=== PATIENT | male | born 1980 | race Caucasian/White ===

== ENCOUNTER 2023-12-08 20:51 | Inpatient (IN) | payer MEDICAID ==
[~2023-12-08] VITALS: Ht 170.2 cm; Wt 98.4 kg
[2023-12-08 21:17] LABS: BASOPHILS % 0.3 % (0.0-2.0); HEMATOCRIT. 44.8 % (42.0-52.0); HEMOGLOBIN. 15.1 g/dL (14.0-18.0); LYMPHOCYTES % 12.4 % (20.0-50.0); MEAN CORPUSCULAR HEMOGLOBIN 31.4 pg (28.0-32.0); MEAN CORPUSCULAR HGB CONC 33.8 g/dL (31.0-37.0); MEAN CORPUSCULAR VOLUME 93.1 fL (80.0-94.0); MEAN PLATELET VOLUME 8.8 fl (7.4-10.4); MONOCYTES % 7.5 % (2.0-8.0); NEUTROPHILS % 79.8 % (40.0-76.0); PLATELET 203 x1000/uL (130-400); RED BLOOD CELL COUNT 4.81 mill/uL (4.7-6.1); RED CELL DISTRIBUTION WIDTH 13.8 % (11.6-14.6); WHITE BLOOD COUNT 13.4 x1000/uL (4.5-11.0)
[2023-12-08] MEDS: ONDANSETRON HCL 4MG/2ML INJ IV STA (21:17)
[2023-12-08] MEDS: SODIUM CHLORIDE 0.9% 1000ML BAG (SEPSIS BOLUS) IV ONE (21:19)
[2023-12-08] MEDS: PIPERACILLIN/TAZO 3.375G/50ML 50 ML IV ONE (21:19)
[2023-12-08 21:26] LABS: CHLORIDE 97 mEq/L (98-107); POTASSIUM 3.5 mEq/L (3.5-5.1); SODIUM 138 mEq/L (136-145)
[2023-12-08 21:27] LABS: CARBON DIOXIDE 33 mEq/L (21-32); PROTHROMBIN TIME 11.4 sec (9.6-11.0)
[2023-12-08 21:27] LABS: BG BASE EXCESS 9.1 mmol/L (-2.0-3.0); BG CARBOXYHEMOGLOBIN 1.4 % (0.5-1.5); BG DEOXYHEMOGLOBIN 7.6 % (0.0-5.0); BG HCO3 ACT 34.1 mmol/L (21.0-28.0); BG METHEMOGLOBIN 0.1 % (0.5-1.5); BG OXYGEN SATURATION 92.3 % (94.0-98.0); BG OXYHEMOGLOBIN 90.9 % (94.0-98.0); BG PH 7.478 (7.350-7.450); BG PO2 62.6 mmHg (83.0-108.0); BG SAMPLE SITE LEFT RADIAL; BG TOTAL HEMOGLOBIN 15.5 g/dL (13.5-17.5); BG VENT MODE ROOM AIR
[2023-12-08 21:28] LABS: CALCIUM 9.9 mg/dL (8.7-10.4)
[2023-12-08 21:32] LABS: GLUCOSE 230 mg/dL (70-105); UREA NITROGEN BLOOD 15 mg/dL (9-23)
[2023-12-08 21:33] LABS: TROPONIN I HIGH SENSITIVITY 14 ng/L (3.0-53)
[2023-12-08 21:34] LABS: ALANINE AMINOTRANSFERASE 15 IU/L (10-49); ALBUMIN 4.6 g/dL (3.2-4.8); ASPARTATE AMINOTRANSFERASE 14 IU/L (<34)
[2023-12-08 21:35] LABS: BETA HYDROXYBUTYRATE 1.5 mMol/L (0.0-0.3); BILIRUBIN TOTAL 0.8 mg/dL (0.1-1.0); PROTEIN TOTAL 7.8 g/dL (6.0-8.3)
[2023-12-08] MEDS: VANCOMYCIN 1G PREMIX 200 ML IV ONE (22:08)
[2023-12-08 23:48] LABS: CLARITY URINE CLEAR (CLEAR); COLOR URINE YELLOW (YELLOW); GLUCOSE URINE 2+ (NEGATIVE); KETONES URINE 2+ (NEGATIVE); LEUKOCYTE ESTERASE URINE NEGATIVE (NEGATIVE); NITRITE URINE NEGATIVE (NEGATIVE); OCCULT BLOOD URINE NEGATIVE (NEGATIVE); PROTEIN URINE 3+ (NEGATIVE); SPECIFIC GRAVITY URINE 1.022 (1.005-1.030)
[2023-12-09 02:02] LABS: RBC URINE 0-2 /hpf (0-2); WBC URINE 0-2 /hpf (0-2)
[2023-12-09 02:03] LABS: BACTERIA URINE NONE SEEN; SQUAMOUS EPITHELIAL CELL URINE NONE SEEN /lpf (RARE/1+)
[2023-12-09] MEDS ORDERED: GUAIFENESIN 200MG/10ML SUGAR FREE UDC PO PRN (02:30)
[2023-12-09] MEDS ORDERED: DEXTROSE 50% WATER 50ML SYRINGE IV PRN (02:30)
[2023-12-09] MEDS ORDERED: ACETAMINOPHEN 325MG TABLET PO PRN ×2 (02:30)
[2023-12-09] MEDS ORDERED: DOCUSATE SODIUM 100MG CAPSULE PO PRN (02:30)
[2023-12-09] MEDS ORDERED: MAGNESIUM/ALUMINUM HYDROXIDE/SIMETHICONE 30ML UDC PO PRN (02:30)
[2023-12-09] MEDS: HYDRALAZINE 20MG/ML VIAL IV PRN (02:59)
[2023-12-09] MEDS: PIPERACILLIN/TAZO 3.375G/50ML 50 ML IV SCH (03:41)
[2023-12-09] MEDS: SODIUM CHLORIDE 0.9% 1,000 ML IV SCH (03:44)
[2023-12-09 04:48] LABS: TROPONIN I HIGH SENSITIVITY 18 ng/L (3.0-53)
[2023-12-09] MEDS ORDERED: VANCOMYCIN 1G PREMIX 200 ML IV SCH (06:00)
[2023-12-09] MEDS: INSULIN LISPRO 100 UNITS/ML SUBCUT SCH ×2 (08:15→10:22)
[2023-12-09] MEDS: BLOOD SUGAR DIAGNOSTIC STRIP TEST SCH (08:15)
[2023-12-09 09:16] LABS: CHLORIDE 99 mEq/L (98-107); POTASSIUM 3.3 mEq/L (3.5-5.1); SODIUM 138 mEq/L (136-145)
[2023-12-09 09:17] LABS: BASOPHILS % 0.5 % (0.0-2.0); CALCIUM 9.6 mg/dL (8.7-10.4); CARBON DIOXIDE 31 mEq/L (21-32); EOSINOPHILS % 0.1 % (0.0-5.0); HEMATOCRIT. 41.7 % (42.0-52.0); HEMOGLOBIN. 14.3 g/dL (14.0-18.0); LYMPHOCYTES % 13.1 % (20.0-50.0); MEAN CORPUSCULAR HEMOGLOBIN 31.6 pg (28.0-32.0); MEAN CORPUSCULAR HGB CONC 34.3 g/dL (31.0-37.0); MEAN CORPUSCULAR VOLUME 92.2 fL (80.0-94.0); MEAN PLATELET VOLUME 8.9 fl (7.4-10.4); MONOCYTES % 5.6 % (2.0-8.0); NEUTROPHILS % 80.7 % (40.0-76.0); PLATELET 179 x1000/uL (130-400); RED BLOOD CELL COUNT 4.52 mill/uL (4.7-6.1); RED CELL DISTRIBUTION WIDTH 13.8 % (11.6-14.6); WHITE BLOOD COUNT 11.1 x1000/uL (4.5-11.0)
[2023-12-09 09:22] LABS: CREATININE 0.8 mg/dL (0.6-1.3); GLUCOSE 215 mg/dL (70-105); TRIGLYCERIDE 90 mg/dL (0-150); UREA NITROGEN BLOOD 12 mg/dL (9-23)
[2023-12-09 09:23] LABS: LDL CHOLESTEROL 118 mg/dL (5-100)
[2023-12-09 09:24] LABS: CHOLESTEROL 166 mg/dL (<200); HDL CHOLESTEROL 32 mg/dL (>55); TROPONIN I HIGH SENSITIVITY 17 ng/L (3.0-53)
[2023-12-09 09:28] LABS: T4 FREE 1.06 ng/dL (0.89-1.76)
[2023-12-09] MEDS: INSULIN GLARGINE 100 UNITS/ML SUBCUT SCH (10:24)
[2023-12-09] MEDS: ENOXAPARIN 40MG/0.4ML SYR SUBCUT SCH (10:32)
[2023-12-09] MEDS: PANTOPRAZOLE SODIUM 40 MG/VIAL IV SCH (10:52)
[2023-12-09] MEDS: VANCOMYCIN 1G PREMIX 200 ML IV SCH (12:23)
[2023-12-09] MEDS: AMLODIPINE 5MG TABLET PO NR (13:00)
[2023-12-09] MEDS: LACTATED RINGERS 1,000 ML IV ONE (18:30)
[2023-12-09 20:00] VITALS: BP 118/67; PULSE 113; RESP 16; TEMP 36.9474
[2023-12-09] MEDS: ATORVASTATIN CALCIUM 20MG TABLET PO SCH (21:34)
[2023-12-09] MEDS: POTASSIUM CHLORIDE 20MEQ/PACKET PO NR (21:35)
[2023-12-10 01:10] VITALS: BP 135/79; PULSE 107; RESP 18; TEMP 36.418
[2023-12-10] MEDS ORDERED: INSU100I13 SQ (01:36)
[2023-12-10] MEDS ORDERED: INSU100I24 SQ (01:36)
[2023-12-10] MEDS: ONDANSETRON HCL 4MG/2ML INJ IV PRN (01:51)
[2023-12-10 02:10] LABS: POTASSIUM 3.4 mEq/L (3.5-5.1)
[2023-12-10 04:00] VITALS: BP 139/91; PULSE 82; RESP 18; TEMP 36.6696; O2SAT 99
[2023-12-10 06:52] LABS: CHLORIDE 97 mEq/L (98-107); POTASSIUM 3.1 mEq/L (3.5-5.1); SODIUM 138 mEq/L (136-145)
[2023-12-10 06:53] LABS: CARBON DIOXIDE 31 mEq/L (21-32)
[2023-12-10 06:54] LABS: CALCIUM 9.5 mg/dL (8.7-10.4)
[2023-12-10 06:57] LABS: BASOPHILS % 0.6 % (0.0-2.0); EOSINOPHILS % 0.2 % (0.0-5.0); HEMATOCRIT. 41.4 % (42.0-52.0); HEMOGLOBIN. 14.1 g/dL (14.0-18.0); LYMPHOCYTES % 19.1 % (20.0-50.0); MEAN CORPUSCULAR HEMOGLOBIN 31.6 pg (28.0-32.0); MEAN CORPUSCULAR HGB CONC 34.1 g/dL (31.0-37.0); MEAN CORPUSCULAR VOLUME 92.5 fL (80.0-94.0); MEAN PLATELET VOLUME 9.5 fl (7.4-10.4); MONOCYTES % 6.3 % (2.0-8.0); NEUTROPHILS % 73.8 % (40.0-76.0); PLATELET 175 x1000/uL (130-400); RED BLOOD CELL COUNT 4.48 mill/uL (4.7-6.1); RED CELL DISTRIBUTION WIDTH 13.7 % (11.6-14.6); WHITE BLOOD COUNT 10.4 x1000/uL (4.5-11.0)
[2023-12-10 06:58] LABS: CREATININE 0.8 mg/dL (0.6-1.3); GLUCOSE 160 mg/dL (70-105)
[2023-12-10 06:59] LABS: UREA NITROGEN BLOOD 11 mg/dL (9-23)
[2023-12-10 07:12] LABS: HEPATITIS B SURFACE ANTIGEN NEGATIVE (Negative)
[2023-12-10 07:33] LABS: HEPATITIS C AB NON REACTIVE (Neg) (Negative)
[2023-12-10 08:00] VITALS: BP 152/108; PULSE 117; RESP 16; TEMP 36.44736; O2SAT 98
[2023-12-10] MEDS ORDERED: ONDANSETRON HCL 4MG/2ML INJ IV PRN (08:15)
[2023-12-10] MEDS: MAGNESIUM 2 G PREMIX 50 ML IV NR (11:36)
[2023-12-10] MEDS: KCL 20MEQ/100ML PREMIX 100 ML IV NR (11:36)
[2023-12-10 12:00] VITALS: BP 139/98; PULSE 119; RESP 18; TEMP 36.78072; O2SAT 97
[2023-12-10 16:00] VITALS: BP_SYST 111; BP_SYST 139; BP_DIAS 84; BP_DIAS 98; PULSE 114; PULSE 118; RESP 18; TEMP 36.6696; TEMP 36.66960; O2SAT 100
[2023-12-10] MEDS: VANCOMYCIN 1G PREMIX 200 ML IV SCH (16:22)
[2023-12-11] MEDS ORDERED: FAMOTIDINE 20MG/2ML VIAL IV SCH (09:00)
== END 2023-12-10 19:20 | disposition home or self-care (01) | DRG 720 ==
LOC: ER 20:51 → 5WST 12-09 00:02 → EDBEDREQ 12-09 00:19 → EDBEDREQTM 12-09 00:19 → EDBEDREQSVC 12-09 00:19 → EDBEDREQDT 12-09 00:19 → EDBEDREQTM 12-09 02:44 → EDBEDREQSVC 12-09 02:44 → 7WST 12-10 01:19
PROVIDERS: ADMIT Internal Medicine; ATTEND Internal Medicine
DX: A41.9 Sepsis, unspecified organism (principal); E10.65 Type 1 diabetes mellitus with hyperglycemia; I45.10 Unspecified right bundle-branch block; T38.3X6A Underdosing of insulin and oral hypoglycemic [antidiabetic] drugs, initial encounter; Z79.899 Other long term (current) drug therapy; Y92.89 Other specified places as the place of occurrence of the external cause
CPT/HCPCS: 36415; 36600; 71045; 80048; 80053; 80061; 80202; 81003; 82010; 82375; 82805; 82962; 83036; 83605; 83735; 83880; 84132; 84145; 84439; 84443; 84481; 84484; 85025; 86705; 87340; 93005; 99285; C1893; J0360; J1650; J1815; J2405; J2470; J2543; J3370; J3475; J3480; J7030